=== PATIENT | female | born 1955 | race Hispanic/Latino ===

== ENCOUNTER 2016-12-31 03:33 | Emergency (ER) | payer OTHER ==
[2016-12-31] MEDS ORDERED: Sodium Chloride 0.9% 1,000 ML IV STA (03:59)
--- NOTE | 2016-12-31 04:14 | ED PDOC ---
HPI: General Adult Time Seen by Provider: 12/31/16 03:48 Chief Complaint (Nursing): Fever Chief Complaint (Provider): Fever and Chills History Per: Patient History/Exam Limitations: no limitations Onset/Duration Of Symptoms: Hrs (x6 [employer]) Current Symptoms Are (Timing): Still Present Additional Complaint(s): Tonya Liriano is a 61 year old female, with a past medical history of psychiatric diseases and breast cancer, who presents to the emergency department with complaining of fever and chills associated with pain in right breast onset for 6 hours prior to arrival. Patient reports she had a double mastectomy x2 weeks ago. states drains were placed on Monday. She denies any chest pain, shortness of breath, cough, nausea and vomit. No further medical complaints. PMD: None provided. Past Medical History Reviewed: Historical Data, Nursing Documentation, Vital Signs Vital Signs: Last Vital Signs Temp 99.3 F 12/31/16 06:28 Pulse 80 12/31/16 06:28 Resp 14 12/31/16 06:28 BP 124/70 12/31/16 06:28 Pulse Ox 99 12/31/16 06:28 - Family History Family History: States: Unknown Family Hx - Home Medications Home Medications: Ambulatory Orders Medication Instructions Recorded Clindamycin [Cleocin] 300 mg PO TID 10 Days 12/31/16 Ketorolac Tromethamine [Toradol] 10 mg PO Q6 #20 tab 12/31/16 - Allergies Allergies/Adverse Reactions: Allergies Allergy/AdvReac Type Severity Reaction Status Date / Time Penicillins Allergy Mild RASH Verified 12/31/16 03:51 Review of Systems ROS Statement: Except As Marked, All Systems Reviewed And Found Negative Constitutional: Positive for: Fever, Chills, Other (Pain on right breast) Cardiovascular: Negative for: Chest Pain Respiratory: Negative for: Cough, Shortness of Breath Physical Exam - Reviewed Nursing Documentation Reviewed: Yes Vital Signs Reviewed: Yes - Physical Exam Appears: Positive for: Well, Non-toxic, No Acute Distress Head Exam: Positive for: ATRAUMATIC, NORMAL INSPECTION, NORMOCEPHALIC Skin: Positive for: Normal Color, Warm, Dry Eye Exam: Positive for: EOMI, Normal appearance, PERRL ENT: Positive for: Normal ENT Inspection Neck: Positive for: Normal, Painless ROM, Supple Cardiovascular/Chest: Positive for: Regular Rate, Rhythm Respiratory: Positive for: Normal Breath Sounds. Negative for: Respiratory Distress Gastrointestinal/Abdominal: Positive for: Normal Exam, Bowel Sounds, Soft Extremity: Positive for: Normal ROM, Other (Chronic tremors) Neurologic/Psych: Positive for: Alert, Oriented Comments: Post mastectomy: Chest erythema on right breast. No fluctuance. Drain in place w / serous fluid. - Laboratory Results Result Diagrams: 12/31/16 04:40 12/31/16 04:40 - ECG O2 Sat by Pulse Oximetry: 97 (RA) Pulse Ox Interpretation: Normal Medical Decision Making Medical Decision Making: Initial Impression: Cellulitis Initial Plan: --VGB Shock Panel --Comp Metabolic Panel --CBC w/ differential --Chest Portable [RAD] --Toradol 30 mg IVP --NS IV 1,000 ml AT 1,000 mls/hr --Blood culture --Urine culture --Urinalysis --reevaluation 630 Pt. feeling better, will prescribe clinda, first dose IV. Instructed her to f/u w/ [facility] doctor team on Monday. Return precautions given. Scribe Attestation: Documented by Adam Lao, acting as a scribe for Torres Wisdom MD. Provider Scribe Attestation: All medical record entries made by the Scribe were at my direction and personally dictated by me. I have reviewed the chart and agree that the record accurately reflects my personal performance of the history, physical exam, medical decision making, and the department course for this patient. I have also personally directed, reviewed, and agree with the discharge instructions and disposition. Disposition - Clinical Impression Clinical Impression: Cellulitis - Disposition Referrals: [facility] [Outside] Disposition Time: 06:30 Condition: STABLE Prescriptions: Clindamycin [Cleocin] 300 mg PO TID 10 Days Ketorolac Tromethamine [Toradol] 10 mg PO Q6 #20 tab Instructions: Cellulitis (ED) Forms: [facility] ([place])
[2016-12-31 04:57] LABS: BASO # 0.1 K/uL (0.0-0.2); BASO % 0.3 % (0.0-2.0); EOS # 0.2 K/uL (0.0-0.7); EOS % 1.3 % (0.0-4.0); HEMATOCRIT 36.9 % (34.0-47.0); LYMPH # 0.8 K/uL (1.0-4.3); LYMPH % 4.6 % (20.0-40.0); MEAN CELL VOLUME 91.4 fl (81.0-99.0); MEAN CORPUSCULAR HEMOGLOBIN 29.8 pg (27.0-31.0); MEAN CORPUSCULAR HGB CONC 32.6 g/dL (33.0-37.0); MEAN PLATELET VOLUME 8.7 fl (7.2-11.7); MONO # 0.6 K/uL (0.0-0.8); MONO % 3.8 % (0.0-10.0); NEUT # 14.9 K/uL (1.8-7.0); PLATELET COUNT 242 K/uL (130-400); RED CELL DISTRIBUTION WIDTH 13.1 % (11.5-14.5); WHITE BLOOD COUNT 16.5 K/uL (4.8-10.8)
[2016-12-31 04:59] LABS: VENOUS BLOOD GAS BASE EXCESS -0.8 mmol/L (0.0-2.0); VENOUS BLOOD GAS PCO2 44 mmHg (40-60); VENOUS BLOOD PH 7.36 (7.32-7.43)
[2016-12-31 05:00] LABS: RBC URINE 2 /hpf (0-3); URINE BACTERIA RARE (<OCC); URINE BILIRUBIN NEGATIVE (NEGATIVE); URINE BLOOD SMALL (NEGATIVE); URINE COLOR STRAW (YELLOW); URINE GLUCOSE (UA) NEG (Normal); URINE KETONE NEGATIVE (NEGATIVE); URINE LEUKOCYTE ESTERASE NEG Leu/uL (Negative); URINE PROTEIN NEGATIVE (NEGATIVE); URINE UROBILINOGEN 0.2-1.0 mg/dL (0.2-1.0); WBC URINE 2 /hpf (0-5)
[2016-12-31 05:07] LABS: ALB/GLOB RATIO 1.5 (1.0-2.1); ALKALINE PHOSPHATASE 52 U/L (38-126); ALT/SGPT 40 U/L (9-52); AST/SGOT 29 U/L (14-36); BILIRUBIN,TOTAL 0.6 mg/dl (0.2-1.3); BLOOD UREA NITROGEN 13 mg/dl (7-17); CALCIUM 9.9 mg/dL (8.4-10.2); CARBON DIOXIDE 22 mmol/L (22-30); CHLORIDE 107 mmol/L (98-107); GFR AFRICAN-AMERICAN > 60; GLUCOSE,RANDOM 108 mg/dL (65-105); SODIUM 138 mmol/l (132-148); TOTAL PROTEIN 6.5 G/DL (6.3-8.2)
[2016-12-31] MEDS ORDERED: Clindamycin 300 MG in Sodium Chloride 0.9% 100 ML IVPB STA (06:08)
[2016-12-31 06:14] LABS: TOTAL CELLS COUNTED 100
[2016-12-31 06:15] LABS: EOSINOPHIL 1 % (0-7); NEUTROPHIL 84 % (42-75)
[2016-12-31 06:16] LABS: REACTIVE LYMPHOCYTES 2 % (0-0)
[2016-12-31 06:29] VITALS: BP 124/70; PULSE 80; RESP 14; TEMP 99.3
[2016-12-31 07:04] VITALS: O2SAT 97
--- NOTE | 2016-12-31 16:42 | RAD ---
HISTORY: recent double mastectomy, r/o PNA COMPARISON: No prior. FINDINGS: LUNGS: Poor inspiration with low lung volumes with mild crowded bronchovascular markings and mild bibasilar atelectasis Radiopaque cylindrical density overlies the right mid to lower lung field. . Curvilinear radiopaque density seen in the right axillary region and left upper quadrant of the abdomen. This could represent overlying clothing artifact on. Tubing or catheter is not excluded PLEURA: No significant pleural effusion identified, no pneumothorax apparent. CARDIOVASCULAR: Normal. OSSEOUS STRUCTURES: No significant abnormalities. VISUALIZED UPPER ABDOMEN: Normal. OTHER FINDINGS: None. IMPRESSION: Poor inspiration with low lung volumes, crowded bronchovascular markings and mild bibasilar atelectasis.
== END 2016-12-31 09:24 | disposition home or self-care (01) ==
LOC: H.ER 03:33
DX: N61.0 Mastitis without abscess (principal); Z85.3 Personal history of malignant neoplasm of breast; Z88.0 Allergy status to penicillin
CPT/HCPCS: 71010; 80053; 81003; 82803; 85025; 87040; 87086; 96361; 96365; 96375; 99284; J1885; J2270; J7040